=== PATIENT | female | born 1985 | race Caucasian/White ===

== ENCOUNTER 2017-09-20 23:43 | Inpatient (IN) ==
[2017-09-20 22:25] LABS: Amphetamine Screen,Urine Negative ng/mL (Cutoff=1000); Barbiturate Screen,Urine Negative ng/mL (Cutoff=200); Benzodiazepines Screen,Urine Negative ng/mL (Cutoff=200); Cannabinoid Screen,Urine Negative ng/mL (Cutoff = 50); Cocaine Screen,Urine Negative ng/mL (Cutoff= 300); Opiate Screen,Urine Negative ng/mL (Cutoff=300); Phencyclidine Screen,Urine Negative ng/mL (Cutoff=25)
--- NOTE | 2017-09-20 22:37 | OB/GYN History & Physical ---
Date of Encounter: 09/21/17 Time of Encounter: 22:32 Assessment and Plan (1) Uterine contractions during Current visit: Yes Status: Acute Patient is 39w4d and presents to L&D with contractions and vaginal bleeding Nitrazine is nondiagnostic due to blood Slide prep did not show ferning under microscope Speculum exam did not show any pooling but blood was present in the vaginal vault. Current cervical check /-1 UDS Monitoring Plan is for vaginal delivery (2) 39 weeks gestation of Current visit: Yes Status: Acute Patient is 39w4d presenting for contractions and vaginal bleeding. (3) Spontaneous onset of labor Current visit: Yes Status: Acute EFM with expectant management History of Present Illness Chief complaint: Contractions HPI: Ms. Landaverde is a 32 year old female at 39w4d presents to L&D for contractions. She states that the contractions began around 1800 this evening and have been about 5-6 minutes apart. She states that she has also felt like she has has a couple of gushed of fluid this evening. Patient reports vaginal bleeding beginning around 2015 this evening but no other vaginal discharge. Patient reports good movement. Denies complications with the . States that she sees Dr. Regalado Patient was seen in the office 09/20/17 and was 480/-2 GBS Negative Type and Screen O Positive HIV- Nonreactive Rubella IgG Antibody Positive Varicella IgG antibody Positive Hep B Surface antigen Negative N. Gonorrhea Negative Chlamydia Negative T Pallidum Negative Past Med Surg Social Fam HX - Past Medical History Source: patient Medical history: no medical history Psychiatric history: no psych history - Past Surgical History Surgical History: other - Social History Smoking Status: Never smoker Smokeless Tobacco Status: No Alcohol use: none Drug use: none - Family History Mother Living Status: Still Living Hx Family Cardiac Disorders: No Hx Family Respiratory Disorders: No Hx Family Cancer: Yes (Melanoma) Hx Family GI Disorders: No Hx Family Endocrine Disorder: No Hx Family Neuromuscular Disorders: No Hx Family Neurologic Disorders: No Hx Family HEENT Disorders: No Hx Family Autoimmune Disorders: No Obstetrical History - Pregnancies : 2 Para: 1 Livin Medications and Allergies Vit/FA 1 tab PO DAILY 09/10/15 [History] 3 Allergy/AdvReac Type Severity Reaction Status Date / Time Cefaclor [From Ceclor] AdvReac Rash Verified 09/20/17 21:42 Review of System OB All systems PM: reviewed and no additional remarkable complaints except as stated Exam - Constitutional Constitutional: well developed, well nourished, no acute distress, average body habitus - HEENT HEENT: Normocephaly - Neck Neck exam: full ROM - Lungs Respiratory exam: CTAB - Cardiovascular Cardiovascular exam: RRR, +S1, +S2 - Abdomen Abdomen: Present: bowel sounds normal, gravid, non tender - Extremities Extremities exam: full ROM, normal capillary refill, normal inspection - Vagina Vagina: Present: normal moisture - Cervix Dilation: 4 (Per Chief Psychologist) Effacement: 80 (Per Chief Psychologist) Station: -1 (Per Chief Psychologist) - Uterus Uterus exam: Present: normal size, normal contour - Anus/Rectum Anus/Rectum: Present: normal perianal skin Results Result Diagrams: 09/20/17 23:49 All other labs normal. - VTE Reasons for not Prescribing Prophylaxis: Treatment not Indicated - Low risk for VTE - Attending Attestation I examined this patient and my medical decision-making was reviewed with the Resident Physician. I agree with the documented findings, disposition and treatment plan as described except to the extent set forth above. Ramya Regalado DO
[~2017-09-20 23:43] MED LIST: *HR* Nalbuphine 20 MG/ML AMPUL IVP PRN; Famotidine 20 MG/2 ML VIAL IVP PRN; Metoclopramide 10 MG/2 ML VIAL IVP PRN; Naloxone 0.4 MG/ML INJ IVP PRN; Ondansetron 4 MG/2 ML VIAL IVP PRN
[2017-09-20] MEDS ORDERED: Ringers Solution, Lactated 1,000 ML IVC SCH (23:45)
[2017-09-20 23:57] LABS: Basophils % 0.3 %; Eosinophils % 0.2 %; Hematocrit 32.5 % (35.3-44.9); Hemoglobin 9.9 g/dL (11.5-15.4); Immature Granulocytes % 0.5 % (0-4); Lymphocytes # 2.4 K/mcL (0.6-4.6); Lymphocytes % 18.3 %; Mean Corpuscular HGB Conc 30.5 g/dL (31.6-35.5); Mean Corpuscular Volume 72.4 fL (83.0-100.0); Mean Platelet Volume 10.4 fL (9.4-12.4); Monocytes # 0.7 K/mcL (0.0-1.3); Monocytes % 5.4 %; Neutrophils # 9.9 K/mcL (1.6-8.9); Platelet Count 295 K/mcL (140-400); Red Blood Count 4.49 M/mcL (3.82-4.97); Red Cell Distribution Width 15.7 % (11.5-14.5); Segmented Neutrophils % 75.3 %
[2017-09-21] MEDS ORDERED: Epidural Premix (fent/bupiv) 110 ML EP SCH (00:15)
[2017-09-21] MEDS ORDERED: Epidural Premix (fent/bupiv) 110 ML EP ONE (00:19)
--- NOTE | 2017-09-21 01:08 | Anesthesia Evaluation PreOp ---
<Vera West - Last Filed: 09/21/17 01:05> Date of Encounter: 09/21/17 Time of Encounter: 00:25 - Past History Planned Operation: marcela Cardiac History: Denies any Significant Hx Pulmonary History: Denies Any Significant HX ANALYSIS DIRECTOR History: Denies Any Significant HX Other Medical History: Denies Any Significant HX Anesthesia History: No Prior Anesthetic Complications : Yes Test: Positive Alcohol Use: none Drug use: none Medications and Allergies Vit/FA 1 tab PO DAILY 09/10/15 [History] 3 Allergy/AdvReac Type Severity Reaction Status Date / Time Cefaclor [From Ceclor] AdvReac Rash Verified 09/20/17 21:42 - Meds/Allergy Pre-op Review Medications Reviewed: Yes Allergies Reviewed: Yes Beta Blockers on Current Med List: No Anesthesia Results - Labs 09/20/17 23:49 Anesthesia Exam Height: 62 Weight: 62 NPO (# of Hours): mn Pain Scale: 7 - HEENT Pupil (Motor): Pupils equal Mallampati: II Teeth: Normal Oral Opening: Greater than 3 - ANALYSIS DIRECTOR LOC: Oriented ANALYSIS DIRECTOR Motor: Normal RUE, Normal LUE, Normal RLE, Normal LLE, Normal Face ANALYSIS DIRECTOR Sensory: Normal: RUE, LUE, RLE, LLE, Face - Cardiac Rhythm: Regular Murmur: None JVD: No Carotid Bruit: No - Pulmonary Breath Sounds: bilateral Clear Respiratory Effort: Symmetrical Anesthesia Assess/Plan ASA Score: 1 Modified [place] Scale for Level of Consciousness: Cooperative, oriented, and tranquil Anesthetic Plan: Regional Autologous Blood: No Monitoring Plan: Standard Monitors <Ramya Regalado - Last Filed: 09/21/17 03:52> Date of Encounter: 09/21/17 Anesthesia Results - Labs 09/20/17 23:49
--- NOTE | 2017-09-21 01:10 | Anesthesia Procedures ---
<Vera West R - Last Filed: 09/21/17 01:08> Date of Encounter: 09/21/17 Time of Encounter: 00:25 Procedures: Anesthesia - Epidural/Spinal Patient ID/Chart reviewed: Yes Patient examined: Yes OB Eval: Gestational age: 39 OB Eval: : 2 OB Eval: Hx Para: 1 OB Eval: Dilated at (cm): 6 OB Eval: Contractions: Non-stressed pattern Consent Obtained: Yes Site Prep: Aseptic Technique, Sterile prep and drape, Povidone-Iodine 1% Patient position: upright Local Anesthetic: Lidocaine 1% Amount of Local Anesthetic used: 3 Touhy Needle Gauge: 18 Touhy Needle Depth (cm): 6 Catheter Depth at Skin (cm): 8 Test Dose (1.5% Lido + Epi): Volume given (mls): 3 Test Dose Result: Negative Loading Dose Administered: Thru Catheter Infusion Rate (mls/hr): [address]: Tegaderm, Tape Interspace Used: L4-L5 Loss of Resistance (DORIAN): Yes Blood: No CSF: No Paresthesia: No Vitals + FHT's: no anesthesia complications with STEVE placement, VSS/FHT stable throughout see nursing notes <Ramya Regalado - Last Filed: 09/21/17 03:51> Date of Encounter: 09/21/17
[2017-09-21] MEDS ORDERED: Oxytocin 20 units/ LR 1000 mL 20 UNIT/1,000 ML BAG IVC ONE (02:51)
--- NOTE | 2017-09-21 03:58 | OB Labor Progress Note ---
Date of Encounter: 09/21/17 Time of Encounter: 03:56 Labor Progress Note - Subjective Subjective: Patient comfortable with urge to push after her epidural. - Cervix Cervix: 8.5/90/0 vertex - Heart Tones Heart Tones: 148 baseline, early decels noted with contractions - [place]: q 2-3 minutes spontaneously - Interventions Interventions: AROM with small amount of clear fluid - Plan Plan: Continue expectant management
[2017-09-21] MEDS ORDERED: Lidocaine 1% 20 ML MDV ONE (04:24)
--- NOTE | 2017-09-21 04:43 | OB/GYN Procedure Note ---
Delivery - Delivery Date: 09/21/17 Provider: Ramya Regalado Intrapartum events: none Delivery induction: none Delivery augmentation: rupture of membranes (at 9 cm) Delivery monitor: external FHT, external uterine Anesthesia: local, epidural Estimated Blood Loss: 100 - Infant (s) A Delivery Date: 09/21/17 Delivery Time: 04:18 Presentation: vertex Position: GRECIA Route of delivery: Gender: Male Viability: Viable Pounds: 6 Ounces: 15 Weight Gram: 3.15 kg at 1 minute: 8 at 5 mins: 9 Shoulder Dystocia: not encountered Specimens collected: cord blood Placenta: spontaneous Cord: nuchal cord, 3 umbilical vessels - Repair Episiotomy: none Laceration Description: Perineal - 2nd Degree - Complications Delivery complications: none Delivery comments: Called to room with patient complete and +2 station. Under maternal effort she delivered a viable male weighing 6 pounds 15 ounces and Apgars 8 and 9 at one and five minutes respectively over a second degree perineal laceration. Nuchal cord noted that she delivered through. No shoulder dystocia was encountered. was delivered vigorous and placed on mom's abdomen. Meconium fluid noted at delivery. Second degree perineal laceration was repaired using 3-0 vicryl in standard fashion under both epidural and local anesthetic. Placenta delivered spontaneously, complete, and intact with a 3 vessel cord. There were no labial, vaginal, or cervical lacerations on exam. Mother and infant are recovering in LDR in stable condition. Due to the meconium stained membranes, the placenta will be sent to pathology for review. - Disposition Mom disposition: stable in LDR disposition: stable in LDR
[2017-09-21] MEDS ORDERED: Acetaminophen 325 MG TABLET PO PRN (06:23)
[2017-09-21] MEDS ORDERED: Oxytocin 20 units/ LR 1000 mL 20 UNIT/1,000 ML BAG IVC SCH (06:23)
[2017-09-21] MEDS: Prenatal Vit/FA 1 EACH TABLET PO SCH (08:55)
--- NOTE | 2017-09-21 09:31 | OB/GYN Progress Note ---
Date of Encounter: 09/21/17 Time of Encounter: 09:29 - Assessment and Plan (1) Status post vaginal delivery Current Visit: Yes Status: Acute on 09/21 at 4:19AM No complications. 2nd degree lac Hgb 9.9 patient receiving iron supplementation No concerns at this time. Plan for discharge tomorrow afternoon. Subjective - Subjective Principal diagnosis: S/p Vaginal Delivery Interval history: Patient is a 32F underwent spontaneous vaginal delivery at 4:18 AM this morning without complications. Patient states she feels well. Tolerating PO, ambulating without difficulty, urinating without difficulty, and pain is well controlled. Patient is . No concerns at this time. Patient reports: appetite normal, voiding normally, pain well controlled, ambulating normally, no appetite poor, no pain poorly controlled, no nauseated [place]: doing well Objective - Latest Vital Signs Latest vital signs: Vital Signs Temp Pulse Resp BP Pulse Ox 09/21/17 08:50 98.1 F 80 16 113/71 98 09/21/17 07:00 97.5 F L 74 16 110/75 98 Intake and Output 09/20/17 09/21/17 09/21/17 23:59 07:59 15:59 Intake Total 240 / 240 Output Total 600 / 600 Balance -600 / -600 240 / 240 Intake: Oral 240 / 240 Output: Urine 500 / 500 Estimated Blood Loss 100 / 100 Other: Meal Breakfast Percent of Meal Consumed 90% Weight 62.6 kg 60 kg Patient Weight 09/21/17 23:59 Weight 60 kg - Exam Lungs: bilateral: normal Chest: Normal S1, Normal S2 Extremities: Present: normal. Absent: tenderness, edema Abdomen: Present: normal appearance, soft, gravid Uterus: Present: normal, firm Uterus Position: Midline - Labs Labs: Laboratory Results - last 24 hr 09/20/17 09/20/17 21:53 23:49 WBC 13.1 H RBC 4.49 Hgb 9.9 L Hct 32.5 L MCV 72.4 L MCH 22.0 L MCHC 30.5 L RDW 15.7 H Plt Count 295 MPV 10.4 Immature Gran % 0.5 Seg Neutrophils % 75.3 Lymphocytes % 18.3 Monocytes % 5.4 Eosinophils % 0.2 Basophils % 0.3 Neutrophils # 9.9 H Lymphocytes # 2.4 Monocytes # 0.7 Eosinophils # 0.0 Basophils # 0.0 Urine Opiates Screen Negative Ur Barbiturates Screen Negative Ur Phencyclidine Scrn Negative Ur Amphetamines Screen Negative U Benzodiazepines Scrn Negative Urine Cocaine Screen Negative U Marijuana (THC) Screen Negative
[2017-09-21] MEDS: Ibuprofen 600 MG TABLET PO PRN (19:20)
[2017-09-22 08:08] VITALS: BP 104/69
[2017-09-22] MEDS: Prenatal Vit/FA 1 EACH TABLET PO SCH (08:10)
[2017-09-22] MEDS: Ibuprofen 600 MG TABLET PO PRN (08:10)
--- NOTE | 2017-09-22 08:21 | Discharge Summary ---
Date of Encounter: 09/22/17 Time of Encounter: 08:20 - Discharge Diagnosis (1) Uterine contractions during Priority: Primary Status: Acute (2) 39 weeks gestation of Priority: Primary Status: Chronic (3) Spontaneous onset of labor Priority: Primary Status: Acute (4) Vaginal delivery Priority: Primary Status: Acute - Discharge Medications Home Medications: Vit/FA 1 tab PO DAILY 09/10/15 [History] Ibuprofen [Motrin] 600 mg PO Q6HR PRN tablet 09/22/17 [Rx] Allergies/Adverse Reactions: 3 Allergy/AdvReac Type Severity Reaction Status Date / Time Cefaclor [From [facility]] AdvReac Rash Verified 09/20/17 21:42 Data Procedures and tests throughout hospitalization: Laboratory Tests 09/20/17 09/20/17 21:53 23:49 WBC 13.1 H RBC 4.49 Hgb 9.9 L Hct 32.5 L MCV 72.4 L MCH 22.0 L MCHC 30.5 L RDW 15.7 H Plt Count 295 MPV 10.4 Immature Gran % 0.5 Seg Neutrophils % 75.3 Lymphocytes % 18.3 Monocytes % 5.4 Eosinophils % 0.2 Basophils % 0.3 Neutrophils # 9.9 H Lymphocytes # 2.4 Monocytes # 0.7 Eosinophils # 0.0 Basophils # 0.0 Urine Opiates Screen Negative Ur Barbiturates Screen Negative Ur Phencyclidine Scrn Negative Ur Amphetamines Screen Negative U Benzodiazepines Scrn Negative Urine Cocaine Screen Negative U Marijuana (THC) Screen Negative Date of admission: 09/20/17 23:43 Consults: 09/21/17 06:23 Consult to Labor Delivery Rn [CONS] Routine Comment: Vaginal delivery, consult needed Discharging clinician: Ramya Regalado Anticipated date of discharge: 09/22/17 - Patient Status Disposition: Home, Self-Care Condition: Good Functional capacity at discharge: independent ambulation Overall status at discharge: patient is progressing back to baseline - Discharge Instructions - Diet and Activity Activity: resume usual activities as tolerated Diet: advance to your usual diet Hospital Course Reason for admission: active labor, IUP at term Delivery: Episiotomy: none Laceration: 2nd degree Other procedures: none complications: none Discharge diagnosis: IUP at term delivered baby: male Time Attestation: Total time spent providing and/or coordinating discharge services: Time Spent: Less than 30 minutes Exam - Constitutional Vitals: Temp Pulse Resp BP Pulse Ox 97.6 F 76 16 104/69 98 09/22/17 07:30 09/22/17 07:30 09/22/17 07:30 09/22/17 07:30 09/22/17 03:50 General appearance IM: A&O X 3, no acute distress - Respiratory Respiratory exam: Present: CTAB. Absent: respiratory distress - Cardiovascular Cardiovascular exam IM: Present: RRR. Absent: irregular rhythm - GI/Abdominal GI/Abdominal exam IM: normal bowel sounds - Rectal Rectal exam: deferred - Uterine Tone: Firm Uterus Position: At Umbilicus - Extremities Exam Extremities exam IM: Absent: calf tenderness - Neurological Exam Neurological exam: oriented X3
== END 2017-09-22 14:26 | disposition home or self-care (01) | DRG 775 ==
LOC: 1NENULAB → 1NENUOBS 09-21 06:22
PROVIDERS: ADMIT Obstetrics & Gynecology; ATTEND Obstetrics & Gynecology

== ENCOUNTER 2020-01-14 16:31 | Inpatient (IN) ==
[~2020-01-14 16:31] MED LIST changes: +*HR* FentaNYL (PF) 100 MCG/2 ML VIAL IVP PRN; -*HR* Nalbuphine 20 MG/ML AMPUL IVP PRN; +Lidocaine 1% 20 ML MDV INFILT PRN
[2020-01-14] MEDS ORDERED: Oxytocin 20 units/ LR 1000 mL 20 UNIT/1,000 ML BAG IVC SCH (16:45)
[2020-01-14] MEDS ORDERED: Ringers Solution, Lactated 1,000 ML IVC SCH (16:45)
[2020-01-14 17:13] LABS: Basophils % 0.2 %; Eosinophils % 0.1 %; Hematocrit 30.4 % (35.3-44.9); Hemoglobin 8.9 g/dL (11.5-15.4); Immature Granulocytes % 0.6 % (0-4); Lymphocytes # 1.6 K/mcL (0.6-4.6); Lymphocytes % 19.1 %; Mean Corpuscular HGB Conc 29.3 g/dL (31.6-35.5); Mean Corpuscular Hemoglobin 21.3 pg (28.0-33.3); Mean Corpuscular Volume 72.9 fL (83.0-100.0); Mean Platelet Volume 10.2 fL (9.4-12.4); Monocytes # 0.4 K/mcL (0.0-1.3); Monocytes % 4.4 %; Neutrophils # 6.2 K/mcL (1.6-8.9); Platelet Count 267 K/mcL (140-400); Red Blood Count 4.17 M/mcL (3.82-4.97); Red Cell Distribution Width 15.9 % (11.5-14.5); Segmented Neutrophils % 75.6 %; White Blood Count 8.2 K/mcL (4.3-11.1)
[2020-01-14 17:22] LABS: Amphetamine Screen,Urine Negative ng/mL (Cutoff=1000); Barbiturate Screen,Urine Negative ng/mL (Cutoff=200); Benzodiazepines Screen,Urine Negative ng/mL (Cutoff=200); Cannabinoid Screen,Urine Negative ng/mL (Cutoff = 50); Cocaine Screen,Urine Negative ng/mL (Cutoff= 300); Opiate Screen,Urine Negative ng/mL (Cutoff=300); Phencyclidine Screen,Urine Negative ng/mL (Cutoff=25)
[2020-01-14] MEDS ORDERED: EPHEDrine 50 MG/ML VIAL IVP PRN (20:29)
[2020-01-14] MEDS ORDERED: Epidural Premix (fent/bupiv) 110 ML EP SCH (20:30)
[2020-01-15] MEDS ORDERED: Rho Immune Globulin 1,500 UNIT SYRINGE IM PRN (01:58)
[2020-01-15] MEDS ORDERED: Lanolin 7 G OINT...G. TP PRN (01:58)
[2020-01-15] MEDS ORDERED: Acetaminophen 325 MG TABLET PO PRN (01:58)
[2020-01-15] MEDS ORDERED: Benzocaine/Menthol 56 GM AEROSOL SPRAY TP PRN (01:58)
[2020-01-15] MEDS ORDERED: Oxytocin 20 units/ LR 1000 mL 20 UNIT/1,000 ML BAG IVC SCH (01:58)
[2020-01-15] MEDS: Ibuprofen 600 MG TABLET PO PRN ×2 (02:47→20:31)
[2020-01-15 04:46] LABS: Basophils % 0.3 %; Hematocrit 24.7 % (35.3-44.9); Hemoglobin 7.4 g/dL (11.5-15.4); Immature Granulocytes % 0.5 % (0-4); Lymphocytes # 1.4 K/mcL (0.6-4.6); Lymphocytes % 11.6 %; Mean Corpuscular Hemoglobin 21.7 pg (28.0-33.3); Mean Corpuscular Volume 72.4 fL (83.0-100.0); Mean Platelet Volume 10.8 fL (9.4-12.4); Monocytes # 0.5 K/mcL (0.0-1.3); Neutrophils # 9.8 K/mcL (1.6-8.9); Platelet Count 251 K/mcL (140-400); Red Blood Count 3.41 M/mcL (3.82-4.97); Red Cell Distribution Width 15.7 % (11.5-14.5); Segmented Neutrophils % 83.6 %; White Blood Count 11.7 K/mcL (4.3-11.1)
[2020-01-15] MEDS: Prenatal Vit/FA 1 EACH TABLET PO SCH (07:55)
[2020-01-15 23:05] VITALS: BP 109/70
[2020-01-16] MEDS: Prenatal Vit/FA 1 EACH TABLET PO SCH (08:24)
== END 2020-01-16 11:45 | disposition home or self-care (01) | DRG 807 ==
LOC: 1NENULAB → 1NENUOBS 01-15 01:52
PROVIDERS: ADMIT Advanced Practice Midwife; ATTEND Advanced Practice Midwife